=== PATIENT | male | born 1975 | race Two or more races ===

== ENCOUNTER 2022-12-14 10:48 | Emergency (ER) | payer OTHER ==
[~2022-12-14] VITALS: Ht 177.8 cm; Wt 90.7 kg
[2022-12-14 12:43] LABS: HEMATOCRIT 47.6 % (39.0-48.0); HEMOGLOBIN 16.4 g/dL (13-16.00); MEAN CELL VOLUME 89.1 fL (80.0-100.00); MEAN CORPUSCULAR HEMOGLOBIN 30.7 pg (27.00-32.0); MEAN CORPUSCULAR HGB CONC 34.4 g/dl (32.0-36.0); PLATELET COUNT 208 K/uL (150-450); RED BLOOD COUNT 5.35 M/uL (4.00-6.00); RED CELL DISTRIBUTION WIDTH 13.2 % (11.5-14.5)
== END 2022-12-14 14:04 | disposition home or self-care (01) ==
LOC: ER 10:48
PROVIDERS: General Practice
DX: J11.1 Influenza due to unidentified influenza virus with other respiratory manifestations (principal)